=== PATIENT | female | born 1990 | race Caucasian/White ===

== ENCOUNTER 2016-11-23 22:17 | Emergency (ER) | payer MEDICAID ==
[2016-11-23] MEDS ORDERED: ACETAMINOPHEN 325 MG TABLET PO ONE (23:50)
--- NOTE | 2016-11-23 23:52 | ER Document Report ---
ED Medical Screen (RME) - General Stated Complaint: FALL, FOOT PAIN Time seen by provider: 23:50 Notes: 26 year old, 8 weeks gestation, foot went back going down stairs, heard pop and felt sharp pain. Swelling started to right foot area. Denies any other injuries. - Related Data Allergies/Adverse Reactions: shellfish derived Allergy (Verified 11/23/16 23:48) strawberry Adverse Reaction (Verified 11/23/16 23:48) Physical Exam - Vital signs Vitals: Temp Pulse Resp BP Pulse Ox 98.3 F 98 16 131/78 H 99 11/23/16 23:36 11/23/16 23:36 11/23/16 23:36 11/23/16 23:36 11/23/16 23:36 - Extremities General lower extremity: Other - pain to lateral right ankle and dorsal foot. normal cap refill, dorsalis pedis, and sensation Course - Vital Signs Vital signs: Temp Pulse Resp BP Pulse Ox 98.3 F 98 16 131/78 H 99 11/23/16 23:36 11/23/16 23:36 11/23/16 23:36 11/23/16 23:36 11/23/16 23:36
--- NOTE | 2016-11-24 01:50 | ER Document Report ---
ED General - General Chief Complaint: Ankle Injury Stated Complaint: FALL, FOOT PAIN Notes: Patient is a 26-year-old female with past medical history of morbid obesity, 8 weeks who presents after an accidental trip and fall down stairs just prior to arrival. Patient states she is walking up the steps in her right foot actually bent backwards and went directly on the ground. She did not sustain any additional injuries. States that since that time she has been unable to ambulate secondary to severe pain in the foot. Describes as a constant, severe throbbing pain to the top of her right foot. No history of similar injury in the past. Nothing improves the pain. States walking or touching the area worsens the pain. She has not seen her primary care physician regarding today' s concerns. TRAVEL OUTSIDE OF THE [place] IN LAST 30 DAYS: No - Related Data Allergies/Adverse Reactions: shellfish derived Allergy (Verified 11/24/16 01:34) strawberry Adverse Reaction (Verified 11/24/16 01:34) Past Medical History - General Information source: Patient - Social History Smoking Status: Never Smoker Cigarette use (# per day): No Chew tobacco use (# tins/day): No Frequency of alcohol use: Rare Drug Abuse: None Lives with: Spouse/Significant other Family History: Reviewed & Not Pertinent Patient has suicidal ideation: No Patient has homicidal ideation: No Renal/ Medical History: Denies: Hx Peritoneal Dialysis - Immunizations Hx Diphtheria, Pertussis, Tetanus Vaccination: Yes Review of Systems - Review of Systems Notes: Constitutional: Negative for fever. Eyes: Negative for visual changes. ENT: Negative for facial injury Cardiovascular: Negative for chest injury. Respiratory: Negative for shortness of breath. Gastrointestinal: Negative for abdominal injury. Genitourinary: Negative for genital injury Musculoskeletal: Negative for back injury. Positive for right foot injury Skin: Negative for laceration/abrasions. Neurological: Negative for head injury. Physical Exam - Vital signs Vitals: Temp Pulse Resp BP Pulse Ox 98.3 F 98 16 131/78 H 99 11/23/16 23:36 11/23/16 23:36 11/23/16 23:36 11/23/16 23:36 11/23/16 23:36 Interpretation: Normal Notes: PHYSICAL EXAMINATION: GENERAL: Well-appearing, well-nourished. Appears mildly uncomfortable but no acute distress. HEAD: Atraumatic, normocephalic. EYES: sclera anicteric, conjunctiva are normal. ENT: Moist mucous membranes. NECK: Normal range of motion LUNGS: Normal work of breathing HEART: 2+ radial pulses bilaterally EXTREMITIES: There is ecchymosis and swelling over the central right foot with severe pain on palpation of this area. No pain on palpation the lateral medial malleolus. No pain at palpation of the base of the fifth toe. Normal dorsi and plantar flexion. NEUROLOGICAL: No focal neurological deficits. Moves all extremities spontaneously and on command. PSYCH: Normal mood, normal affect. SKIN: Warm, Dry, normal turgor, no rashes or lesions noted. Course - Re-evaluation Re-evalutation: 11/24/16 04:23 Patient presents after falling down a step and has been found to have a Lisfranc fracture of the right foot. She is in place and a short posterior leg splint and made nonweightbearing. Neurovascularly intact. I instructed her that she will require urgent follow-up with orthopedic surgery. She has declined any stronger pain medication secondary to being .patient denies any additional injury during today's episode of a fall. At this time will discharge with return precautions and follow-up recommendations. Verbal discharge instructions given a the bedside and opportunity for questions given. Medication warnings reviewed. Patient is in agreement with this plan and has verbalized understanding of return precautions and the need for primary care and ortho follow-up in the next 24-72 hours. - Vital Signs Vital signs: Temp Pulse Resp BP Pulse Ox 98.2 F 95 16 128/74 H 99 11/24/16 02:38 11/24/16 02:38 11/24/16 02:38 11/24/16 02:38 11/24/16 02:38 - Diagnostic Test Radiology reviewed: Image reviewed, Reports reviewed Radiology results interpreted by me: 11/24/16 04:24 Right foot x-ray: Lisfranc fracture Discharge - Discharge Clinical Impression: Lisfranc fracture Condition: Good Disposition: HOME, SELF-CARE Additional Instructions: You have a fracture in your foot. You need to follow-up with orthopedic surgery in the next several days for reassessment and discussion about further management. Keep the splint on and do not bear weight until cleared by orthopedic surgery. You can take tylenol, 1000mg every 6 hours as needed for pain. Return if you have worsening pain, numbness, weakness, spreading redness from the area, or any other symptoms that are concerning to you.
[2016-11-24 02:39] VITALS: BP 128/74
== END 2016-11-24 02:50 | disposition home or self-care (01) ==
LOC: ER 22:17
DX: S93.326A Dislocation of tarsometatarsal joint of unspecified foot, initial encounter (principal); Z3A.08 8 weeks gestation of pregnancy; W10.9XXA Fall (on) (from) unspecified stairs and steps, initial encounter
CPT/HCPCS: 99283; 73610; 73630; J3490

== ENCOUNTER 2016-11-26 14:47 | Emergency (ER) | payer MEDICAID ==
--- NOTE | 2016-11-26 15:45 | ER Document Report ---
Addendum entered and electronically signed by KARLA PERSAUD PA-C 11/26/16 18: 42: Discharge - Discharge Clinical Impression: Vaginal bleeding in Qualifiers: Trimester: first trimester Qualified Code(s): O46.91 - Antepartum hemorrhage, unspecified, first trimester Urinary tract infection Qualifiers: Urinary tract infection type: acute cystitis Hematuria presence: without hematuria Qualified Code(s): N30.00 - Acute cystitis without hematuria Condition: Good Disposition: HOME, SELF-CARE Instructions: Nitrofurantoin ([facility]), Urinary Tract Infection ([facility]) Additional Instructions: : You are . care is best started as early in as possible. If you're unsure about continuing this , you should discuss this with your physician or with comb machine operator at [facility]. You should take only medications approved by your physician. Acetaminophen can safely be taken for minor pains. As a rule, medication for chronic conditions such as asthma or seizures can safely be continued. You should discuss with the physician every medicine you take. Any regular exercise program can be continued. Talk to your physician, however, before engaging in competitive or demanding sports. Alcohol, smoking, and "street drugs" are dangerous to your baby. Cocaine is especially dangerous. Don't use any illicit drugs! BLEEDING DURING EARLY : You have been evaluated for passing blood while . While we take this symptom very seriously, most women with your degree of bleeding will go on to have a perfectly normal baby. At this time, there is no indication that a miscarriage will occur. (A miscarriage occurs when the fetus is abnormal. There is no medicine or treatment to prevent it.) A more serious cause of bleeding is tubal (or ectopic) . An ultrasound usually can show whether the is in the uterus or in the tube. Sometimes in early , no fetus is seen. In this case, careful follow-up, including repeat blood tests and repeat ultrasound, is necessary. Do not douche or have sex for at least a week, or until OK'd by the doctor. Don't use tampons. Call the doctor or return for re-examination if there is an increase in bleeding or cramping, extreme weakness, fainting, new abdominal pain, fever, or passage of tissue. FOLLOW-UP CARE: If you have been referred to a physician for follow-up care, call the physician s office for an appointment as you were instructed or within the next two days. If you experience worsening or a significant change in your symptoms (very heavy bleeding with large clots of blood, passage of tissue, more severe abdominal / pelvic pain or cramping, feeling faint or severe weakness, fever, etc.), notify the physician immediately or return to the Emergency Department at any time for re-evaluation. OBSTETRIC-GYNECOLOGIC (OB-BISCUIT MACHINE OPERATOR) [facility] IN [place]: [facility] [address] [place] [address] [phone] Prescriptions: Nitrofurantoin/Nitrofuran Mac [Macrobid 100 mg Capsule] 1 tab PO BID #20 capsule Original Note: ED GI/ - General Chief Complaint: Vaginal Bleeding Stated Complaint: VAGINAL BLEEDING Notes: He is a 8 week 26-year-old female presents emergency Department complaining of one day vaginal spotting and cramping. Patient states she woke up this morning and noticed light spotting in her underwear and has had mild cramping today. She denies any other complaints. Doesn't have much abdominal pain, no worsening nausea with vomiting, denies any diarrhea or constipation. Denies any pyuria, hematuria, urinary frequency that is abnormal , urinary urgency. Denies any female history consistent with polycystic ovarian syndrome, endometriosis. Otherwise she is a healthy 26-year-old female TRAVEL OUTSIDE OF THE [place] IN LAST 30 DAYS: No - Related Data Allergies/Adverse Reactions: shellfish derived Allergy (Verified 11/24/16 01:34) strawberry Adverse Reaction (Verified 11/24/16 01:34) Past Medical History - General Information source: Patient - Social History Smoking Status: Never Smoker Family History: Reviewed & Not Pertinent Renal/ Medical History: Denies: Hx Peritoneal Dialysis - Immunizations Hx Diphtheria, Pertussis, Tetanus Vaccination: Yes Review of Systems - Review of Systems Constitutional: No symptoms reported EENT: No symptoms reported Cardiovascular: No symptoms reported Respiratory: No symptoms reported Gastrointestinal: No symptoms reported Genitourinary: No symptoms reported Female Genitourinary: See HPI Musculoskeletal: No symptoms reported Skin: No symptoms reported Hematologic/Lymphatic: No symptoms reported Neurological/Psychological: No symptoms reported Physical Exam - Notes Notes: PHYSICAL EXAM GENERAL: Alert, interacts well. HEAD: Normocephalic, atraumatic. EYES: Pupils equal, round, and reactive to light. Extraocular movements intact. ENT: Oral mucosa moist, tongue midline. NECK: Full range of motion. Supple. Trachea midline. LUNGS: Clear to auscultation bilaterally, no wheezes, rales, or rhonchi. No respiratory distress. HEART: Regular rate and rhythm. No murmurs, gallops, or rubs. ABDOMEN: Soft, nondistended, mild tenderness to palpation of the left pelvis and suprapubic area. No guarding, rebound, or rigidity.. Bowel sounds present in all 4 quadrants. Female exam deferred given presentation and will send for a transvaginal ultrasound EXTREMITIES: Moves all 4 extremities spontaneously. No edema, radial and dorsalis pedis pulses 2/4 bilaterally. No cyanosis. NEUROLOGICAL: Alert and oriented x3. Normal speech. PSYCH: Normal affect, normal mood. SKIN: Warm, dry, normal turgor. No rashes or lesions noted. Course - Re-evaluation Re-evalutation: 11/26/16 18:27 Patient is a 26-year-old female who is hemodynamically stable in no acute distress. Laboratory studies did not reveal any abnormalities. Transvaginal ultrasound shows living intrauterine of 6 weeks 5 days, heart rate of 127 beats per minute. She does have a subchorionic bleed that measures 1.9 x 1.3 x 1.5. Discussed results with patient and discussed with her indications to follow-up with her RN RESIDENTIAL as scheduled. - Laboratory Result Diagrams: 11/26/16 17:02 11/26/16 17:02 Laboratory results interpreted by me: 11/26/16 11/26/16 11/26/16 16:25 17:02 17:02 RDW 14.2 H Beta HCG, Quant 45694.00 H Urine Blood SMALL H Ur Leukocyte Esterase TRACE H Urine Ascorbic Acid 40 H - Diagnostic Test Radiology reviewed: Reports reviewed Discharge - Discharge Clinical Impression: Vaginal bleeding in Qualifiers: Trimester: first trimester Qualified Code(s): O46.91 - Antepartum hemorrhage, unspecified, first trimester Condition: Good Disposition: HOME, SELF-CARE Additional Instructions: : You are . care is best started as early in as possible. If you're unsure about continuing this , you should discuss this with your physician or with comb machine operator at [facility]. You should take only medications approved by your physician. Acetaminophen can safely be taken for minor pains. As a rule, medication for chronic conditions such as asthma or seizures can safely be continued. You should discuss with the physician every medicine you take. Any regular exercise program can be continued. Talk to your physician, however, before engaging in competitive or demanding sports. Alcohol, smoking, and "street drugs" are dangerous to your baby. Cocaine is especially dangerous. Don't use any illicit drugs! BLEEDING DURING EARLY : You have been evaluated for passing blood while . While we take this symptom very seriously, most women with your degree of bleeding will go on to have a perfectly normal baby. At this time, there is no indication that a miscarriage will occur. (A miscarriage occurs when the fetus is abnormal. There is no medicine or treatment to prevent it.) A more serious cause of bleeding is tubal (or ectopic) . An ultrasound usually can show whether the is in the uterus or in the tube. Sometimes in early , no fetus is seen. In this case, careful follow-up, including repeat blood tests and repeat ultrasound, is necessary. Do not douche or have sex for at least a week, or until OK'd by the doctor. Don't use tampons. Call the doctor or return for re-examination if there is an increase in bleeding or cramping, extreme weakness, fainting, new abdominal pain, fever, or passage of tissue. FOLLOW-UP CARE: If you have been referred to a physician for follow-up care, call the physician s office for an appointment as you were instructed or within the next two days. If you experience worsening or a significant change in your symptoms (very heavy bleeding with large clots of blood, passage of tissue, more severe abdominal / pelvic pain or cramping, feeling faint or severe weakness, fever, etc.), notify the physician immediately or return to the Emergency Department at any time for re-evaluation. OBSTETRIC-GYNECOLOGIC (OB-BISCUIT MACHINE OPERATOR) [facility] IN [place]: [facility] [address] [place] [address] [phone]
[2016-11-26 17:06] LABS: APPEARANCE,URINE SLIGHTLY-CLOUDY; BILIRUBIN,URINE NEGATIVE (NEGATIVE); GLUCOSE, URINE NEGATIVE (NEGATIVE); KETONES,URINE NEGATIVE (NEGATIVE); LEUKOCYTE ESTERASE,URINE TRACE (NEGATIVE); NITRITE,URINE NEGATIVE (NEGATIVE); PROTEIN,URINE NEGATIVE (NEGATIVE); URINE SPECIFIC GRAVITY 1.024; UROBILINOGEN,URINE NEGATIVE mg/dL (<2.0)
[2016-11-26 17:12] LABS: ABSOLUTE BASOPHILS # (AUTO) 0.1 10^3/uL (0.0-0.2); ABSOLUTE EOSINOPHILS # (AUTO) 0.1 10^3/uL (0.0-0.6); ABSOLUTE LYMPHOCYTES (AUTO) 2.3 10^3/uL (0.5-4.7); ABSOLUTE MONOCYTES (AUTO) 0.6 10^3/uL (0.1-1.4); ABSOLUTE NEUT (AUTO) 7.5 10^3/uL (1.7-8.2); BASOPHILS % (AUTO) 0.6 % (0-2); EOSINOPHILS % (AUTO) 1.1 % (0-6); HEMATOCRIT 40.2 % (36.0-47.0); HGB HCT DIFFERENCE -1.2; LYMPHOCYTES % (AUTO) 21.8 % (13-45); MEAN CORPUSCULAR HEMOGLOBIN 28.2 pg (27.0-33.4); MEAN CORPUSCULAR HGB CONC 32.3 g/dL (32.0-36.0); MEAN CORPUSCULAR VOLUME 87 fl (80-97); MONOCYTES % (AUTO) 5.7 % (3-13); RED CELL DISTRIBUTION WIDTH 14.2 % (11.5-14.0); SEGMENTED NEUTROPHILS % (AUTO) 70.8 % (42-78); WHITE BLOOD COUNT 10.5 10^3/uL (4.0-10.5)
[2016-11-26 17:27] LABS: ALANINE AMINOTRANSFERASE 26 U/L (9-52); ALBUMIN 4.5 g/dL (3.5-5.0); ALKALINE PHOSPHATASE 75 U/L (38-126); ANION GAP 13 (5-19); ASPARTATE AMINO TRANSFERASE 22 U/L (14-36); BILIRUBIN,TOTAL 0.9 mg/dL (0.2-1.3); BLOOD UREA NITROGEN 9 mg/dL (7-20); CALCIUM 9.8 mg/dL (8.4-10.2); CARBON DIOXIDE 23 mmol/L (22-30); CHLORIDE 105 mmol/L (98-107); CREATININE RESULT 0.56 mg/dL (0.52-1.25); GLUCOSE 84 mg/dL (75-110); SODIUM 140.9 mmol/L (137-145)
[2016-11-26] MEDS ORDERED: NITROFURANTOIN MONOHYD/M-CRYST 100 MG CAPSULE PO ONE (18:42)
[2016-11-26 18:47] VITALS: BP 130/79
== END 2016-11-26 18:46 | disposition home or self-care (01) ==
LOC: ER 14:47
DX: O46.91 Antepartum hemorrhage, unspecified, first trimester (principal); N30.00 Acute cystitis without hematuria; Z3A.08 8 weeks gestation of pregnancy
CPT/HCPCS: 99284; 36415; 84702; 85025; 80053; 81001; 76817; 93976; J3490; J8499